=== PATIENT | male | born 1960 | race Caucasian/White ===

== ENCOUNTER 2022-12-28 15:08 | Outpatient (CLI) | payer BC ==
[2022-12-28 16:50] LABS: Hematocrit 41.7 % (38.8-50.0); Hemoglobin 14.3 g/dL (13.5-17.5); Mean Corpuscular HGB CONC 34.3 g/dL (32.0-36.0); Mean Corpuscular Hemoglobin 31.2 pg (27.0-33.0); Mean Platelet Volume 10.6 fl (7.4-10.4); Platelet Count 229 10x3/uL (150-450); RBC Distribution Width 12.5 % (11.5-14.5); Red Blood Cell (RBC) Count 4.58 10x6/uL (4.32-5.72); White Blood Cell (WBC) Count 8.7 10x3/uL (3.5-10.5)
[2022-12-28 17:02] LABS: Anion Gap 11 mmol/L (10-20); BUN (Urea Nitrogen) 16 mg/dL (8.4-25.7); Calc. Creatinine Clearance 0 mL/min (70-130); Calcium 8.9 mg/dL (7.8-10.44); Carbon Dioxide 26 mmol/L (22-29); Chloride 104 mmol/L (98-107); Estimated GFR 106; Glucose 80 mg/dL (70-105); Potassium 4.2 mmol/L (3.5-5.1); Sodium 137 mmol/L (136-145)
[2022-12-28 17:08] LABS: INR-International Normal Ratio 0.9; PTT 29.3 sec (22.0-33.0); Prothrombin Time 10.2 sec (9.5-12.1)
== END 2022-12-28 15:09 | disposition home or self-care (01) ==
LOC: LABBT 15:08
PROVIDERS: ATTEND Neurological Surgery
DX: Z01.812 Encounter for preprocedural laboratory examination (principal); M51.26 Other intervertebral disc displacement, lumbar region; M48.062 Spinal stenosis, lumbar region with neurogenic claudication; M48.56XA Collapsed vertebra, not elsewhere classified, lumbar region, initial encounter for fracture
CPT/HCPCS: 80048; 85027; 85610; 85730

== ENCOUNTER 2023-01-01 05:57 | Observation (INO) | payer BC ==
[2022-12-28 15:43] VITALS: BMI 23.7
[2023-01-01] MEDS ORDERED: EPINEPHrine 1 MG/ML AMP ONE (06:09)
[2023-01-01] MEDS ORDERED: Thrombin 5000 UNITS/5 ML VIAL ONE (06:09)
[2023-01-01] MEDS ORDERED: Vancomycin 1 GM VIAL ONE (06:09)
[2023-01-01] MEDS ORDERED: Bupivacaine PF 0.5% 30 ML VIAL ONE (06:09)
[2023-01-01] MEDS ORDERED: HYDROmorphone 2 MG/ML VIAL ONE (06:16)
[2023-01-01] MEDS ORDERED: fentaNYL 50 mcg/mL 1 mL Vial ONE (06:16)
[2023-01-01] MEDS ORDERED: Midazolam HCl 2 mg/2 ml Vial ONE (06:16)
[2023-01-01] MEDS ORDERED: Phenylephrine 10 MG/ML VIAL ONE (06:17)
[2023-01-01] MEDS ORDERED: LevoFLOXacin 500 mg/D5W 100 ML BAG ONE (06:34)
[2023-01-01] MEDS ORDERED: HYDROcodone/Acetaminophen 7.5/325 mg Tablet PO PRN (06:44)
[2023-01-01] MEDS ORDERED: Ondansetron PF 4 MG/2 ML Vial IVP PRN (06:44)
[2023-01-01] MEDS ORDERED: Milk Of Magnesia 30 ML UDCUP PO PRN (06:44)
[2023-01-01] MEDS ORDERED: diphenhydrAMINE 50 MG/ML VIAL IVP PRN (06:44)
[2023-01-01] MEDS ORDERED: Mag-Al 1200 mg/1200 mg/30 ML UDCUP PO PRN (06:44)
[2023-01-01] MEDS ORDERED: Acetaminophen/Codeine 30-300mg Tablet PO PRN (06:44)
[2023-01-01] MEDS ORDERED: Morphine 2 MG/ML VIAL SLOW IVP PRN (06:44)
[2023-01-01] MEDS ORDERED: tiZANidine HCl 4 MG TAB PO PRN (06:50)
[2023-01-01] MEDS ORDERED: Clindamycin/D5W 900 mg/50 ml Premix Bag ONE (06:53)
[2023-01-01] MEDS ORDERED: PROPOFOL 200 MG/20 ML VIAL ONE (07:02)
[2023-01-01] MEDS ORDERED: Dexamethasone 20 MG/5 ML VIAL ONE (07:02)
[2023-01-01] MEDS ORDERED: Lidocaine 1% PF 5 ML VIAL ONE (07:02)
[2023-01-01] MEDS ORDERED: Rocuronium Bromide 10 MG/ML (10ML VIAL) ONE (07:02)
[2023-01-01] MEDS ORDERED: Vecuronium 10 MG VIAL ONE (07:02)
[2023-01-01] MEDS ORDERED: ePHEDrine Sulfate 50 MG/10 ML VIAL ONE (07:02)
[2023-01-01] MEDS ORDERED: PHENYLEPHRINE-NS 100 MCG/ML 10 ML SYRINGE ONE (07:02)
[2023-01-01] MEDS ORDERED: Ondansetron PF 4 MG/2 ML Vial ONE (07:02)
[2023-01-01] MEDS ORDERED: Sevoflurane 250 ML INH ANEST BOTTLE ONE (09:44)
[2023-01-01] MEDS ORDERED: SUGAMMADEX SODIUM 200 MG/2 ML VIAL ONE (12:22)
[2023-01-01] MEDS ORDERED: Fentanyl 250 MCG/5 ML VIAL ONE (13:19)
[2023-01-01] MEDS ORDERED: tiZANidine HCl 4 MG TAB ONE (13:35)
[2023-01-01] MEDS ORDERED: Promethazine HCl 25 MG/ML VIAL IM/IV PRN (14:45)
[2023-01-01] MEDS ORDERED: Ondansetron HCl/PF 4 MG/2 ML Vial IVP PRN (14:45)
[2023-01-01] MEDS: Multivitamin W/ Minerals 1 TAB PO SCH (16:18)
[2023-01-01] MEDS: Atorvastatin Calcium 20 MG TAB PO SCH (16:18)
[2023-01-01] MEDS: Sodium Chloride 0.9% 1,000 ML IV SCH ×2 (16:18→20:34)
[2023-01-01] MEDS: HYDROcodone/Acetaminophen 10/325 mg Tablet PO PRN ×2 (16:54→20:35)
[2023-01-01] MEDS: Clindamycin/D5W 900 MG in Premix 1 BAG IVPB SCH (17:00)
[2023-01-02] MEDS: Clindamycin/D5W 900 MG in Premix 1 BAG IVPB SCH (00:21)
[2023-01-02] MEDS: HYDROcodone/Acetaminophen 10/325 mg Tablet PO PRN ×2 (09:13→16:18)
[2023-01-02] MEDS: Multivitamin W/ Minerals 1 TAB PO SCH (09:13)
[2023-01-02] MEDS: Atorvastatin Calcium 20 MG TAB PO SCH (09:13)
[2023-01-02] MEDS: Sodium Chloride 0.9% 1,000 ML IV SCH (10:28)
[2023-01-02 12:52] VITALS: BP 138/76; TEMP 98.5
[2023-01-04] MEDS ORDERED: FLU VACC QS2023-24(6MOS UP)/PF 60 MCG/0.5 ML SYRINGE IM ONE (16:30)
== END 2023-01-02 16:40 | disposition home or self-care (01) ==
LOC: SDC 05:57 → SURG B 06:44
PROVIDERS: ADMIT Neurological Surgery; ATTEND Neurological Surgery
PROC: 01NB0ZZ Release Lumbar Nerve, Open Approach (ICD-10-PCS; principal; 2023-01-01)
PROC: 01NR0ZZ Release Sacral Nerve, Open Approach (ICD-10-PCS; 2023-01-01)
PROC: 0SG3071 Fusion of Lumbosacral Joint with Autologous Tissue Substitute, Posterior Approach, Posterior Column, Open Approach (ICD-10-PCS; 2023-01-01)
PROC: 0SG00AJ Fusion of Lumbar Vertebral Joint with Interbody Fusion Device, Posterior Approach, Anterior Column, Open Approach (ICD-10-PCS; 2023-01-01)
DX: M48.062 Spinal stenosis, lumbar region with neurogenic claudication (principal); M54.16 Radiculopathy, lumbar region; M51.26 Other intervertebral disc displacement, lumbar region; M48.56XA Collapsed vertebra, not elsewhere classified, lumbar region, initial encounter for fracture; I10 Essential (primary) hypertension; E78.00 Pure hypercholesterolemia, unspecified; Z79.899 Other long term (current) drug therapy; Z87.891 Personal history of nicotine dependence; Z88.0 Allergy status to penicillin
CPT/HCPCS: A4314; C1713; C1889; J0171; J1100; J1170; J1956; J2250; J2370; J2405; J2704; J3010; J3370; J3490; S0020